=== PATIENT | male | born 1980 | race Caucasian/White ===

== ENCOUNTER → 2018-09-27 15:57 | Outpatient (CLI) | payer OTHER, SELFPAY ==
--- NOTE | 2018-09-27 16:07 | RAD_ITS ---
STUDY: X-RAY - RIGHT ELBOW REASON FOR EXAM: Male, 38 years old. Lateral elbow pain. TECHNIQUE: 3 view(s) of the elbow. COMPARISON: None. FINDINGS: Normal visualized humerus, radius and ulna. Normal radiocapitellar and ulnotrochlear articulations. The soft tissue structures are unremarkable. RAD/Elbow min 3 Views IMPRESSION: Normal x-ray examination of the elbow. Electronically Signed: German Gonzalez MD at 4:05 EDT Tel , Service support ,
== END ==
PROVIDERS: Family Provider Family Medicine; PCP Family Medicine; Referring Provider Family Medicine; Visit Provider Family Medicine
DX: M77.11 Lateral epicondylitis, right elbow (principal)
CPT/HCPCS: 73080

== ENCOUNTER 2018-10-27 11:00 | Outpatient (RCR) | payer OTHER, SELFPAY ==
--- NOTE | 2018-11-01 08:10 | HP.PTEVAL ---
Patient's Visit Information RONEY MCCLOUD is a 38 year old M referred to Physical Therapy by Charles Yancey MD with a diagnosis of R lateral epicondylitis. Date of Evaluation: 09/29/18 Physical Therapist: Lee Sterling DPT - Visit Plan Frequency: 1-2x /Week Duration: 4-6 Weeks Plan: Start with US to R lateral epicondyle, eccentric loading of lateral extensor group and triceps. - Subjective Findings: Pt. is here today for his initiail evaluation with diagnosis of R lateral epicondylitis. Pt. reports having increased pain for several months, with unknown mechanism. Pt. reports occassionaly pain, but has increased heaviness in his R arm with frequent . He also has pain wtih throwing. Pt. has trialed some stretching, and resting, but that is about it. Pt. has been throwiing with his daughter and having some trouble. Pt. denies N/T and no difficulty sleeping. Pt. is hopeful to reduce symptoms in order to complete all actviiteis and work releated activiteis without issues. - Pain R lateral elbow Pain Intensity (Out of 10): 2 Pain Intensity Range: 1, 6 - Objective POSTURE: PT. has normal posture in stance, normal elbow positioning. PALPATION: Pt. has tenderness at lateral epicondyle, lateral triceps attachment. NEURO: Normal throughout, normal sensation, normal DTR bilaterally. ROM: Pt. has full ROM or cervical spine, elbow and shoulder. MMT: Pt. has full strength of bilateral shoulders, and elbows. He does have increased soreness with wrist extension and elbow extension motions. - Special Tests R Elbow Flexion Test - Cubital Tunnel: Negative R Elbow Tinels - Ulnar n.: Negative R Elbow Valgus Stress Test - MCL Instability: Negative R Elbow Varus Stress Stest - MCL Instability: Negative R Elbow Posterior Lateral Rotator Instability - as named: Negative R Elbow Lat Epiconylitis - as named: Negative - Goals Goal 1:: Pt. to be I with HEP. Goal Time Frame: 4-6 Weeks Goal 2:: Pt. to have full strength of R wrist/elbow without increase in symptoms. Goal Time Frame: 4-6 Weeks Goal 3:: Pt. to be able to throw without increase in symptoms. Goal Time Frame: 4-6 Weeks Goal 4:: Pt. to complete all household work without issues. - Rehabilitation Potential Physical Therapy Diagnosis: Pt. has signs and symptoms consistent with tendonosis of either lateral epicondyle, distal triceps. Pt. would benefit from US to promote healing then eccentric strengtheing to increase tendon stability. Rehabilitation Potential: Good - Anticipated Interventions Patient/Client Instruction: Educate patient on: Condition, Plan of Care, Risk Factors, Benefits of Fitness Program For the Purpose of:: To improve decision making, To facilitate caregiver knowledge, To improve self management, To prevent re-injury, To improve ability to perform tasks related to life management, To improve tolerance to ADL's Therapeutic Exercise to Include: Strength training, Power training, Postural training, Passive ROM, Active ROM For the Purpose of:: To decrease pain, To decrease swelling/inflammation, To increase ROM, To improve nutrient delivery to tissue, To increase oxygenation perfusion, To decrease soft tissue restriction, To increase flexibility/ROM Manual Therapy Techniques to Include: Functional dry needling, Soft tissue mobilization For the Purpose of:: To decrease pain, To decrease swelling/inflammation, To increase ROM, To improve nutrient delivery to tissue IF ES: Yes Cryotherapy (ice pack, ice massage): Yes Ultrasound (thermal/non thermal): Yes Thank you for the opportunity to evaluate your patient. For Medicare and Medicare HMO plans, please review the plan of care and approve it. It will need to be FAXED BACK to us at [phone] for Medicare purposes. For Medicare only, by signing this I certify the plan of care. Please let me know if there are questions or concerns regarding this plan of care. Physician Signature: Date:
--- NOTE | 2018-11-01 08:34 | HP.PTREVAL ---
Charles Yancey MD, It has been my pleasure to treat RONEY MCCLOUD over the last 4 visits for R lateral epicondylitis. Please see the progress note below for an update on the physical therapy plan of care! Subjective: PT. reports I am pretty good right now. Pt. conitines to have soreness as times, but overall improved. Pt. has HEP for exercises with eccentric exercises. Objective/Function: Pt. continues to have full strength, but no pain now with testing. Pt. does have some soreness with over use (repeative), but minimal. pt. to trial exercises on own at this point in time and follow up with Pt if needed. Plan Plan: Pt. to trial exercises on own. If I do not see patient in 2-3 weeks I will DC patient back to physician. Goals Goal 1:: Pt. to be I with HEP. Goal Time Frame: 4-6 Weeks Goal Progress: Goal Met Goal 2:: Pt. to have full strength of R wrist/elbow without increase in symptoms. Goal Time Frame: 4-6 Weeks Goal Progress: Goal Met Goal 3:: Pt. to be able to throw without increase in symptoms. Goal Time Frame: 4-6 Weeks Goal Progress: Progressing Goal 4:: Pt. to complete all household work without issues. Goal Progress: Progressing Anticipated Interventions Patient/Client Instruction: Educate patient on: Condition, Plan of Care, Risk Factors, Benefits of Fitness Program For the Purpose of:: To improve decision making, To facilitate caregiver knowledge, To improve self management, To prevent re-injury, To improve ability to perform tasks related to life management, To improve tolerance to ADL's Therapeutic Exercise to Include: Strength training, Power training, Postural training, Passive ROM, Active ROM For the Purpose of:: To decrease pain, To decrease swelling/inflammation, To increase ROM, To improve nutrient delivery to tissue, To increase oxygenation perfusion, To decrease soft tissue restriction, To increase flexibility/ROM Manual Therapy Techniques to Include: Functional dry needling, Soft tissue mobilization For the Purpose of:: To decrease pain, To decrease swelling/inflammation, To increase ROM, To improve nutrient delivery to tissue IF ES: Yes Cryotherapy (ice pack, ice massage): Yes Ultrasound (thermal/non thermal): Yes Please do not hesitate to contact me at [phone] by phone or if you have questions or concerns regarding this new plan of care! Sincerely, MARIEL NavarroT
== END 2018-10-27 19:00 | disposition home or self-care (01) ==
LOC: PT 11:00
PROVIDERS: Family Provider Family Medicine; PCP Family Medicine; Referring Provider Family Medicine; Visit Provider Family Medicine
DX: M77.11 Lateral epicondylitis, right elbow (principal)
CPT/HCPCS: 97035; 97110; 97161

== ENCOUNTER → 2018-11-30 15:43 | Outpatient (CLI) | payer OTHER, SELFPAY ==
--- NOTE | 2018-11-29 | IMM_PTH ---
PATIENT: RONEY MCCLOUD LOC: [facility] U#:[id number] AGE/SX: 44/M ROOM: RE11/30/[address]: Dr. Toño Payne MD : 1980 BED: DIS: SPEC #: [id number] RECD: 12/02/18 12:12 STATUS: PANCHO REHuseyin #: [id number] NEW: 11/29/18 00:[address]: Toño Payne DEPT: IMMUNOHISTOCHEMISTRY RECD BY: Aminata Monsivais ENTERED: 12/02/18 12:12 SP TYPE: IMMUNO OTHR DR: Dr. Charles Yancey MD Tissues: Stomach, NOS Procedures: H Pylori (initial) PHYSICIAN & INSTITUTION [place] [id number] SPECIMEN INFORMATION: Tissue Source: Gastric antrum body biopsy Clinical Info: Epigastric pain, nausea Specimen Number: [id number] CPT code: 63878 METHODOLOGY: Deparaffinized sections of prefer/formalin-fixed tissue or PAP/DQ stained slides are incubated with monoclonal/polyclonal antibodies/oligonucleotide probes. Localization is made via biotin free immunoperoxidase method. Appropriate controls are performed and reacted as expected. Results on target cell population are indicated in the following table: RESULTS: ANTIBODY / CLONE RESULT H Pylori (polyclonal) negative These tests were developed and their performance characteristics determined by [facility]. They may not have been cleared or approved by the [place]. Food and Drug Administration. The FDA has determined that such clearance or approval is not necessary. INTERPRETATION: Gastric antrum body biopsy: Negative for Helicobacter pylori organisms. AM:kalie 12/03/18
--- NOTE | 2018-11-29 14:00 | EGD_PTH ---
PATIENT: RONEY MCCLOUD LOC: [facility] U#:[id number] AGE/SX: 44/M ROOM: RE11/30/[address]: Dr. Toño Payne MD : 1980 BED: DIS: SPEC #: [id number] RECD: 11/30/18 15:25 STATUS: PANCHO TANISHA #: [id number] NEW: 11/29/18 14:[address]: Toño Payne DEPT: SURGICAL PATHOLOGY RECD BY: Jean Marie Bhandari ENTERED: 12/01/18 10:56 SP TYPE: EGD BIOPSY OT DR: Dr. Charles Yancey MD [facility] Tissues: Gastric mucous membrane Procedures: Surgery Specimen Level IV HEADER OPERATION: EGD with biopsy PRE-OP DIAGNOSIS: Epigastric pain / nausea TISSUE SUBMITTED: Gastric antrum body biopsy, rule out gastritis MICROSCOPIC DIAGNOSIS Gastric antrum, biopsy: Minimal chronic inflammation. See comment. AM:kalie 12/02/18 COMMENT The results of immunohistochemistry for Helicobacter pylori will be reported separately ([id number]). MICROSCOPIC DESCRIPTION Slides are reviewed. GROSS DESCRIPTION Received in fixative is one container labeled with the patient's name and designated gastric antrum. The specimen consists of two irregular fragments of light lama soft tissue that in aggregate measure 1 x 0.3 x 0.1 cm. The specimen is totally submitted in one cassette. / SJ:kalie 12/01/18 TC:3 CPT: 88620
== END ==
PROVIDERS: Family Provider Family Medicine; PCP Family Medicine; Referring Provider Internal Medicine Gastroenterology; Visit Provider Internal Medicine Gastroenterology
DX: R10.13 Epigastric pain (principal); R11.0 Nausea
CPT/HCPCS: 88305; 88342

== ENCOUNTER 2021-07-04 18:16 | Outpatient (CLI) | payer OTHER, SELFPAY | END 2021-07-04 23:59 | disposition home or self-care (01) | PROVIDERS: PCP Family Medicine; Visit Provider Family Medicine | DX: Z20.822 Contact with and (suspected) exposure to COVID-19 (principal) | CPT/HCPCS: 87635; U0003; U0005 ==

== ENCOUNTER 2021-08-21 08:08 | Outpatient (CLI) | payer OTHER, SELFPAY ==
--- NOTE | 2021-08-21 08:11 | RAD_ITS ---
STUDY: X-RAY - ESOPHAGUS (BARIUM SWALLOW) WITH FLUOROSCOPY REASON FOR EXAM: Male, 41 years old. HIATAL HERNIA GERD TECHNIQUE: 17 view(s) of the esophagus were obtained following swallowing of barium. FLUOROSCOPY TIME (if supplied): (29 seconds) minutes/seconds COMPARISON: None. FINDINGS: There is no demonstrated esophageal foreign body. There is no demonstrated stricture or mucosal abnormality. Normal gastroesophageal junction, without a demonstrated hiatal hernia. The patient ingested a 12 mm tablet of barium without any difficulty. Normal visualized aortic arch and descending thoracic aorta. Normal visualized pulmonary parenchyma. Normal visualized osseous structures of the thorax. RAD/Esophagus Dual Contrast IMPRESSION: Normal plain film x-ray examination (barium swallow) of the esophagus. Electronically Signed: Rubin Ambriz MD at 9:41 EDT ,
== END 2021-08-21 23:59 | disposition home or self-care (01) ==
LOC: RAD 08:09
PROVIDERS: PCP Family Medicine; Visit Provider Internal Medicine Gastroenterology
DX: K21.9 Gastro-esophageal reflux disease without esophagitis (principal); K44.9 Diaphragmatic hernia without obstruction or gangrene
CPT/HCPCS: 74220; 74221